=== PATIENT | female | born 1925 | race Caucasian/White ===

== ENCOUNTER → 2016-10-09 | Outpatient (CLI) | payer MEDICARE, BC ==
[2016-10-02 10:54] VITALS: BMI 25.4
[2016-10-09 14:05] VITALS: BP 149/83; PULSE 60; RESP 18; TEMP 97.9
--- NOTE | 2016-10-09 16:18 | P.CONS ---
History of Present Illness - Reason for Consult Consult date: 10/09/16 - History of Present Illness This is the initial consultation visit for this 89 years old female, with a chronic history of severe low back pain started more than a year ago, she denies any initiating event she denies any fever or night sweats. No history of trauma or accident, and no history of heavy lifting, pain is constant and increases with any activity, she denies any motor or sensory deficit,, patient discovered intensity of the pain and 8/10 and increases with any activity to 10 over 10, interfering with her quality of life, and she described her pain as aching and nagging pain, associated with numbness and tingling sensation in the lower extremity Past Medical History Past Medical History: Heart Failure, Hyperlipidemia, Hypertension, Musculoskeletal Disorder, Osteoarthritis (OA), Thyroid Disorder Additional Past Medical History / Comment(s): uses cane or walker, History of Any Multi-Drug Resistant Organisms: None Reported Past Surgical History: Appendectomy, Breast Surgery, Cholecystectomy, Hernia Repair, Hysterectomy, Pacemaker Additional Past Surgical History / Comment(s): thyroid surgery x 3, benign tumors removed from stomach, jimena cataracts, breast biopsy Past Anesthesia/Blood Transfusion Reactions: No Reported Reaction Type of Cardiac Device: Permanent Pacemaker Device Placement Date:: 2012 Past Psychological History: Depression Smoking Status: Never smoker Past Alcohol Use History: Rare Past Drug Use History: None Reported - Past Family History Brother(s) Family Medical History: Cancer Medications and Allergies Home Medications Medication Instructions Recorded Confirmed Type Apixaban [Eliquis] 2.5 mg PO BID 02/27/16 10/02/16 History Atorvastatin [Lipitor] 20 mg PO HS 02/27/16 10/09/16 History Carvedilol 12.5 mg PO BID 02/27/16 10/09/16 History Citalopram Hydrobromide [CeleXA] 10 mg PO HS 02/27/16 10/09/16 History Furosemide [Lasix] 40 mg PO DAILY 02/27/16 10/09/16 History Ibuprofen [Advil] 200 mg PO DIRECTED PRN 02/27/16 10/09/16 History Levothyroxine Sodium [Synthroid] 88 mcg PO DAILY 02/27/16 10/09/16 History Lisinopril [Prinivil] 5 mg PO DAILY 02/27/16 10/09/16 History Potassium Chloride [Klor-Con 20] 20 meq PO DAILY 02/27/16 10/09/16 History Vit C/E/Zn/Coppr/Lutein/Zeaxan 2 each PO DAILY 02/27/16 10/09/16 History [Preservision Areds 2 Softgel] amLODIPine BESYLATE [Norvasc] 10 mg PO HS 02/27/16 10/09/16 History hydrALAZINE HCL [Apresoline] 50 mg PO PC-TID 02/27/16 10/09/16 History Allergies Allergy/AdvReac Type Severity Reaction Status Date / Time No Known Allergies Allergy Verified 10/09/16 13:38 Physical Exam Vitals: Vital Signs Temp Pulse Resp BP 10/09/16 13:41 97.9 F 60 18 149/83 Intake and Output 10/09/16 10/09/16 10/09/16 06:59 14:59 22:59 Other: Weight 64.41 kg Patient Weight 10/10/16 06:59 Weight 64.41 kg Social history : not smoker , NO ETOH , NO Illegal drugs use . Review of Systems : 1- Constitutional : no chills , no fever , no night sweats , 2- Ears : no ear discharge , no change in hearing 3-Nose, Mouth ,Throat ; no bleeding gums, no sore throat , no epistaxis , 4-Cardiovascular : Denies chest pain, , no orthopnea , no palpitation 5-Respiratory : Denies cough , no dyspnea , no hemoptysis 6-Gastrointestinal :, no change in bowel habits , no coffee- ground emesis . 7-Genitourinary : No hematuria , no discharge , no incontinence, 8-Musculoskeletal : No gait dysfunction , report low back pain , 9- Neurological : no ataxia , no tremor , no sezure , 10-Psychatric , no suicidal ideation no hallucination 11- Endocrine : no cold intolerence , no polyuria , no polydypsia , 12-Hematologic : taking ELIQUIS 13-Allergic / immunology : no angioedema , no wheezing ,no allergic rhinitis 14-Integumentary : no brttle nails , no change hair / nails , no foot/leg ulcers . Physical Examinations : 1-Constitutional : Cooperative , not in acute distress . 2-HEENT : nech ; supple , no Lymphadenopathy , no Thyromegaly , :eyes , no icterus, no photophobia . ENT : , normal oropharynx , no Thrush 3- Respiratory : Chest clear to auscultations Bilaterally , no wheezing . 4- Cardiovascular : regular rate and rhythem , S1 , S2 , no S3 , no S4. 5- Gastrointestinal: abdomen soft no tenderness , no organomegally . 6- Genitourinary : Defferred . 7-Integumentary : No cellulitis , no ulcers , normal skin turgor , no cyanotic . 8- neurologic : Cranial nerve II to XII intact , no focal neurological deffecit 9-psychatric : alert , oriented X 3 , appropriate affect , intact judgment and insight . 10-Lymphatic : no Lymphadenopathy. 11- musculoskeltal: exams of the cervical spine = motor stregnth in the deltoid and biceps, normal right side , normal Left side exams of the Lumber spine = moter stegnth lower extremities , thigh and legs 4/5 Right side , 4/5 Left side deep tendon reflexes : normal Knee Jerk , normal ankle Jerk positive lumber facet Loading Test Range of motion of the lumbar spine Flexion 30 degrees, extension 10 degrees strait leg raising test , positive at degree Fabere test positive RT and positive LT . Sever tenderness over the trochanteric bursa on the Left sides Results Comments: X-ray of the lumbar spine.= multilevel lumbar degenerative disc disease Assessment and Plan Plan: Assessment and plan = Lumbar radiculopathy, lumbar degenerative disc disease Trochanteric bursitis Patient is not a candidate to have MRI of the lumbar spine because she had pacemaker - diagnoses, prognosis, and treatment options including but not limited to physical therapy, surgical interventions, interventional therapies and medication management including narcotics and adjuvant medication were discussed with the patient and all questions answered to the patient's satisfaction. -medication refile =1-Aurora 5/320 5/2-1 tablet every 8 hours when necessary for pain , Neurontin 100 mg twice a day -procedure= patient could benefit from lumbar epidural steroid injection under fluoroscopy guidance, the same time she could benefit also from left trochanteric bursa steroid injection, patient currently taking ELIQUIS ,and she has to stop it for 48 hours before the procedure, and also I recommend patient stop taking Advil because combination between the Advil and ELIQUIS could increase the risk of GI bleeding Time with Patient: Greater than 30
== END | disposition home or self-care (01) ==
LOC: PNWHC3 13:04
PROVIDERS: ATTEND Specialist
DX: M51.36 Other intervertebral disc degeneration, lumbar region (principal); M70.60 Trochanteric bursitis, unspecified hip; Z95.0 Presence of cardiac pacemaker; Z79.899 Other long term (current) drug therapy; F32.9 Major depressive disorder, single episode, unspecified; I50.9 Heart failure, unspecified; E78.5 Hyperlipidemia, unspecified; I10 Essential (primary) hypertension; M19.90 Unspecified osteoarthritis, unspecified site; E07.9 Disorder of thyroid, unspecified
CPT/HCPCS: 99211

== ENCOUNTER → 2016-11-06 | Outpatient (CLI) | payer MEDICARE, BC ==
[2016-11-06 14:18] VITALS: BP 174/72; PULSE 61; RESP 16; TEMP 97.5
--- NOTE | 2016-11-07 20:31 | P.PN ---
Subjective This is follow-up visit for this patient with a history of severe and chronic low back pain secondary to lumbar degenerative disc disease lumbar radiculopathy, and left trochanteric bursitis , she is scheduled to have, lumbar epidural steroid injection, and left trochanteric bursa Steroid injection, she has to HOLD ELEQUES for 3 days before the procedure , and patient currently taking 1-Moclips 5/325 every 8 hours 2-Neurontin 100 mg twice a day Patient denies any side effects of the medication, denies excessive drowsiness or sleepiness, denies suicidal ideation, and reports that the current pain medication is NOT helping To control the pain and improve activity of daily living Physical Examinations : 1-Constitutiona : Cooperative , not in acute distress . 2-HEENT : nech ; supple , no Lymphadenopathy , no Thyromegaly , normal thyroid size . eyes : no ptosis , no icterus, no photophobia . ENT : normal of hearing , normal oropharynx , no Thrush . 3- Respiratory : Chest clear to auscultations Bilaterally , no wheezing , no Rhonchi . 4- Cardiovascular : regular rate and rhythem , S1 , S2 , no S3 , no S4. 5- Gastrointestinal : abdomen soft no tenderness , bowel sounds positive all four quadrents , no organomegally . 6- Genitourinary : Defferred . 7- neurologic : Cranial nerve II to XII intact , no focal neurological deffecit . 8-psychatric : alert , oriented X 3 , appropriate affect , intact judgment and insight . 9-Lymphatic : no Lymphadenopathy . 10- musculoskeltal : exams of the cervical spine = motor strength normal bilateral upper extremities facet loading test cervical area positive. exams of the Lumber spine = motor strength lower extremities ,thigh and legs .5/5 deep tendon reflexes : normal Knee Jerk , normal ankle Jerk . lumber facet Loading Test positive strait leg raising test positive at 30 degree , RT ,LT , Fabere test positive RT and positive LT . Range of motion: Range of motion in flexion of the lumbar spine 30 degrees Range of motion range of motion of extension of the lumbar spine 10 Sever tenderness over the Sacroiliac joint on the Right , and Left side Assessment and plan = - Chronic low back pain secondary to lumbar degenerative disc disease , lumbar radiculopathy ,and left trochanteric bursitis - chronic and current use of high-risk medication (Opioids). Pain is not well controlled The patient was counseled about risk of opioid use, psychological risk associated with opioids and was orally counseled to not overuse , divert,or sell dictations to take medications as prescribed only , and to restore medication in safe location , and the patient counseled against driving while using narcotic medications, and also not to use alcohol or any illicit recreational drugs, the patient's verbalized understanding that the lack of compliance will result in failure to renew narcotic prescription and possible discharge from the clinic - diagnoses, prognosis, and treatment options including but not limited to physical therapy, surgical interventions, interventional therapies , and medication management including narcotics and adjuvant medication were discussed with the patient and all The questions answered -medication management =1-increased Moclips to 5/325 every 6-8 hours dispensed 90 2-change to Neurontin to 100 mg 3 times a day 3-advised patient not to take Motrin [id number], because she is taking ELEQUES On the combination could increase GI bleed -procedure= patient already scheduled to have lumbar epidural steroid injections and left trochanteric bursitis Objective - Vital Signs Vital signs: Vital Signs Temp 97.5 F L 11/06/16 14:08 Pulse 61 11/06/16 14:08 Resp 16 11/06/16 14:08 BP 174/72 11/06/16 14:08 Pulse Ox 99 11/06/16 14:08
== END ==
LOC: PNWHC3 13:22
PROVIDERS: ATTEND Specialist
DX: M51.16 Intervertebral disc disorders with radiculopathy, lumbar region (principal); M70.62 Trochanteric bursitis, left hip; G89.29 Other chronic pain; Z79.891 Long term (current) use of opiate analgesic
CPT/HCPCS: 99211

== ENCOUNTER 2017-01-01 07:32 | Day surgery (SDC) | payer MEDICARE, BC ==
[2016-12-31 09:16] VITALS: BMI 24.7
[~2017-01-01 07:32] MED LIST: LACTATED RINGERS 1,000 ML IV SCH
[2017-01-01 07:55] VITALS: RESP 16; TEMP 97.8
[2017-01-01] MEDS ORDERED: LACTATED RINGERS 1,000 ML IV ONE (07:59)
[2017-01-01] MEDS ORDERED: LIDOCAINE 1% 20 ML VIAL (10MG/ML) FOR IV START INTRADERMA ONE (08:00)
[2017-01-01] MEDS ORDERED: DEXAMETHASONE SOD PHOS (MDV) 100 MG/10 ML VIAL ONE (08:30)
[2017-01-01] MEDS ORDERED: BUPIVACAINE (PF) 0.5% 30 ML VIAL ONE (08:30)
[2017-01-01] MEDS ORDERED: IOHEXOL 180 MG/ML 1 ML ML ONE (08:30)
--- NOTE | 2017-01-01 08:52 | P.PCN ---
Date of Procedure: 01/01/17 Preoperative Diagnosis: Postoperative Diagnosis: Procedure(s) Performed: PREOPERATIVE DIAGNOSIS: 1- Lumbar Degenerative Disc Diseases 2-left trochanteric bursitis 3-lumbar radiculopathy POSTOPERATIVE DIAGNOSIS: 1-Lumber Degenerative Disc Diseases 2-left trochanteric bursitis. 3-lumbar radiculopathy PROCEDURE 1. Lumbar epidural steroid injection under fluoroscopic guidance at the L5-S1 level. 2. Lumbar epidurogram. 3-left trochanteric bursa steroid injection under fluoroscopy guidance ANESTHESIA: Local with 1% lidocaine 3 ml . EBL: Minimal PROCEDURE INDICATION: The patient with low back pain and radiculitis symptoms unresponsive to conservative treatment. Fluoroscopy was used to optimize visualization of the needle placement and to maximize safety. PROCEDURE DESCRIPTION / TECHNIQUE: The patient was seen and identified in the preoperative area. Risks, benefits , complications including but not limited to infections ,bleeding ,allergic reaction to the medications ,nerve damage and not complete pain releife , and alternatives were discussed with the patient. The patient agreed to proceed with the procedure and signed the consent. IV was started, and vital signs were stable. Patient was taken to the OR and time out was completed. The patient was placed in the prone position on procedure table and a pillow was placed under the abdomen to reduce lumbar lordosis. The lumbosacral area was prepped and draped in the usual sterile fashion.ere closely monitored during the procedure. Conscious sedation was used during the procedure to decrease patients anxiety. Vital signs was monitered during the entire procedure. Using anterior-posterior fluoroscopy, the L5-S1 interlaminar space was identified and the skin over this site was marked and then infiltrated with 1% lidocaine subcutaneously. Subsequently, a 20-gauge Tuohy epidural needle was inserted and advanced toward the epidural space using the ``Loss of resistance technique and guided by AP and lateral fluoroscopy. The correct needle position in the epidural space was verified with the injection of 2 mL of the water soluble contrast dye Omnipaque 180 contrast and observing an excellent epidurogram with the epidural spread of the dye, after negative aspiration for blood and CSF and in the absence of paresthesias. Again after negative aspiration, a 6 ml mixture containing 15 mg of Dexamethasone and 2 ml of preservative free Normal Saline, and 2 ml of preservative free lidocaine 1% solution was injected and a washout of epidurogram was seen. Needle was withdrawn intact, The left hip area.cleaned With Betadine x3 , then a 22-gauge Quincke-type needle advanced slowly to the left trochanteric bursa area, needle placement confirmed with AP and lateral view, and after negative aspiration, 5 ML of Marcaine 0.5% mixed with 5 mg of dexamethasone injected after negative aspiration and there was no paresthesia during the injection, patient tolerated the procedure well without any complications COMPLICATIONS: None DISPOSITION / PLANS: The patient was placed in a supine position and transferred to the recovery area in a stable condition for observation. There was no evidence of lower extremity motor or sensory deficit after the procedure. Patient was discharged from the recovery room after meeting discharge criteria. Home discharge instructions were given to the patient by the staff. The patient was reexamined prior to discharge. The patient will schedule a follow up in the clinic in 2-4 weeks. Implants: Indications for Procedure: Operative Findings: Description of Procedure:
[2017-01-01 09:16] VITALS: BP 137/53; PULSE 56
--- NOTE | 2017-01-01 09:19 | FL ---
EXAMINATION TYPE: FL guided pain mgmt statistic DATE OF EXAM: 01/01/2017 8:49 AM HISTORY: Flouroscopy time 3 seconds of fluoroscopy provided. IMPRESSION: 1. Fluoroscopy time.
[2017-01-01] MEDS ORDERED: IV FLUID CONTINUATION 1,000 ML IV ONE (09:23)
== END 2017-01-01 09:39 | disposition home or self-care (01) ==
LOC: ORPAIN 07:32
PROVIDERS: ATTEND Specialist
DX: M51.16 Intervertebral disc disorders with radiculopathy, lumbar region (principal); M70.62 Trochanteric bursitis, left hip; Z79.01 Long term (current) use of anticoagulants; Z88.2 Allergy status to sulfonamides; Z88.8 Allergy status to other drugs, medicaments and biological substances
CPT/HCPCS: 62323; 20610; Q9965; J1100

== ENCOUNTER 2017-02-06 06:58 | Day surgery (SDC) | payer MEDICARE, BC ==
[2017-02-04 09:42] VITALS: BMI 25.3
[2017-02-06] MEDS ORDERED: LACTATED RINGERS 1,000 ML IV SCH (07:15)
[2017-02-06] MEDS ORDERED: LACTATED RINGERS 1,000 ML IV ONE (07:31)
[2017-02-06 07:32] VITALS: RESP 18; TEMP 98.1
[2017-02-06] MEDS ORDERED: LIDOCAINE 1% 20 ML VIAL (10MG/ML) FOR IV START INTRADERMA ONE (07:32)
[2017-02-06] MEDS ORDERED: DEXAMETHASONE SOD PHOS (MDV) 100 MG/10 ML VIAL ONE (08:25)
[2017-02-06] MEDS ORDERED: IOHEXOL 180 MG/ML 1 ML ML ONE (08:25)
[2017-02-06] MEDS ORDERED: MIDAZOLAM 2 MG/2 ML VIAL ONE (08:25)
[2017-02-06] MEDS ORDERED: fentaNYL (PF) 50 MCG/ML 2 ML AMP ONE (08:25)
[2017-02-06] MEDS ORDERED: BUPIVACAINE (PF) 0.5% 30 ML VIAL ONE (08:25)
[2017-02-06] MEDS ORDERED: IV FLUID CONTINUATION 1,000 ML IV ONE (08:53)
--- NOTE | 2017-02-06 08:55 | P.PCN ---
Date of Procedure: 02/06/17 Preoperative Diagnosis: Postoperative Diagnosis: Procedure(s) Performed: PREOPERATIVE DIAGNOSIS: 1- Lumbar Degenerative Disc Diseases 2-Lumbar radiculopathy. 3-left trechonteric bursitis POSTOPERATIVE DIAGNOSIS: same as preoperative diagnosis PROCEDURE 1. Lumbar epidural steroid injection under fluoroscopic guidance at the L5-S1 level. 2. Lumbar epidurogram. 3. left trechonteric bursa steroid injections under Fluroscopy guidence anesthesia= versed 1 mg ,fentanyle 50 mcg , lidocaine 1% 3 mL descreption of the procedure= The patient was seen and identified in the preoperative area. Risks, benefits , complications including but not limited to infections ,bleeding ,allergic reaction to the medications ,nerve damage and not complete pain releife , and alternatives were discussed with the patient. The patient agreed to proceed with the procedure and signed the consent. IV was started, and vital signs were stable. Patient was taken to the OR and time out was completed. The patient was placed in the prone position on procedure table and a pillow was placed under the abdomen to reduce lumbar lordosis. The lumbosacral area was prepped and draped in the usual sterile fashion.ere closely monitored during the procedure. Conscious sedation was used during the procedure to decrease patients anxiety. Vital signs was monitered during the entire procedure. Using anterior-posterior fluoroscopy, the L5-S1 interlaminar space was identified and the skin over this site was marked and then infiltrated with 1% lidocaine subcutaneously. Subsequently, a 20-gauge Tuohy epidural needle was inserted and advanced toward the epidural space using the ``Loss of resistance technique and guided by AP and lateral fluoroscopy. The correct needle position in the epidural space was verified with the injection of 2 mL of the water soluble contrast dye Omnipaque 180 contrast and observing an excellent epidurogram with the epidural spread of the dye, after negative aspiration for blood and CSF and in the absence of paresthesias. Again after negative aspiration, a 6 ml mixture containing 15 mg of Dexamethasone and 2 ml of preservative free Normal Saline, and 2 ml of preservative free lidocaine 1% solution was injected and a washout of epidurogram was seen. Needle was withdrawn intact then the left trechonteric bursa area , preped with Betadine 3, then 2-gauge Quincke-type needle advanced slowly under fluoroscopy and placed in the left trochanteric bursa, and after negative aspiration, Marcaine 0.5% 6 ML and 5 mg of dexamethasone injected after negative aspiration under was no paresthesia during the injection, tolerated the procedure well without any complications. COMPLICATIONS: None DISPOSITION / PLANS: The patient was placed in a supine position and transferred to the recovery area in a stable condition for observation. There was no evidence of lower extremity motor or sensory deficit after the procedure. Patient was discharged from the recovery room after meeting discharge criteria. Home discharge instructions were given to the patient by the staff. The patient was reexamined prior to discharge. The patient will schedule a follow up in the clinic in 2-4 weeks. Shunt was instructed to take ELIQUIS at night 6 PM tonight Implants: Indications for Procedure: Operative Findings: Description of Procedure:
--- NOTE | 2017-02-06 08:56 | FL ---
FLUOROSCOPY 4 seconds of fluoroscopy time were utilized during lumbar epidural injection. 2 images document the p rocedure.
[2017-02-06 09:20] VITALS: BP 145/65; PULSE 61
== END 2017-02-06 09:34 | disposition home or self-care (01) ==
LOC: ORPAIN 06:58
PROVIDERS: ATTEND Specialist
DX: M51.16 Intervertebral disc disorders with radiculopathy, lumbar region (principal); M70.62 Trochanteric bursitis, left hip; Z79.02 Long term (current) use of antithrombotics/antiplatelets; Z88.2 Allergy status to sulfonamides; Z88.8 Allergy status to other drugs, medicaments and biological substances
CPT/HCPCS: 62323; 20610; J2250; Q9965; J3010; J1100